=== PATIENT | male | born 1955 | race Asian ===

== ENCOUNTER 2016-11-20 22:19 | Inpatient (IN) | payer OTHER ==
[~2016-11-20] VITALS: Ht 165.1 cm; Wt 80.3 kg
[2016-11-20 23:15] VITALS: BP 137/79
[2016-11-20] MEDS ORDERED: DOCU-170 PO (23:58)
[2016-11-20] MEDS ORDERED: FAMO-131 PO (23:58)
[2016-11-20] MEDS ORDERED: ATOR80TA PO (23:58)
[2016-11-21] VITALS (7 sets, daily range): BP systolic 129–156; BP diastolic 77–99
[2016-11-21] MEDS ORDERED: NITR0.4T6 SL (00:03)
[2016-11-21] MEDS ORDERED: CLOP75TA2 PO (00:03)
[2016-11-21] MEDS ORDERED: METO25TA6 PO (00:06)
[2016-11-21] MEDS ORDERED: LOSA50TA21 PO (00:06)
[2016-11-21] MEDS ORDERED: CLOPIDOGREL BISULFATE 75 MG TABLET PO SCH (00:30)
[2016-11-21] MEDS ORDERED: LOSARTAN POTASSIUM 50 MG TABLET PO SCH ×2 (00:30→09:00)
[2016-11-21] MEDS ORDERED: Medication Not On Formulary EA (Atorvastatin Calcium (Lipitor) 80 MG) PO SCH (00:30)
[2016-11-21] MEDS ORDERED: MORPHINE SULFATE INJ 2 MG/ML DISP.SYRIN IV PRN (00:30)
[2016-11-21] MEDS ORDERED: NITROGLYCERIN 0.4 MG/TAB BOTTLE SL PRN (00:30)
[2016-11-21] MEDS ORDERED: FAMOTIDINE (20 MG) 20 MG TABLET PO SCH (00:30)
[2016-11-21] MEDS ORDERED: ACETAMINOPHEN 325 MG TABLET PO PRN (00:30)
[2016-11-21] MEDS ORDERED: DOCUSATE SODIUM 100 MG CAPSULE PO SCH (00:30)
[2016-11-21] MEDS ORDERED: NITROGLYCERIN 0.4 MG/TAB BOTTLE SL SCH (00:30)
[2016-11-21] MEDS ORDERED: METOPROLOL TARTRATE 25 MG TABLET PO SCH (00:30)
[2016-11-21 08:12] LABS: BASOPHILS % (AUTO) 0.3 % (0.0-2.0); EOSINOPHILS # (AUTO) 0.3 /CMM (0.0-0.7); EOSINOPHILS % (AUTO) 2.9 % (0.0-6.0); HEMATOCRIT 49 % (39-51); HEMOGLOBIN 16.7 g/dL (13.5-17.5); LYMPHOCYTES % (AUTO) 21.7 % (20.0-44.0); MEAN CORPUSCULAR HEMOGLOBIN 34 PG (26.0-33.0); MEAN CORPUSCULAR HGB CONC 34 g/dl (31.0-36.0); MEAN CORPUSCULAR VOLUME 98 fL (80-96); MONOCYTES # (AUTO) 0.6 /CMM (0.1-1.30); MONOCYTES % (AUTO) 6.5 % (2.0-12.0); NEUTROPHILS # (AUTO) 6.4 /CMM (1.8-8.9); NEUTROPHILS % (AUTO) 68.6 % (43.0-81.0); PLATELET COUNT (AUTO) 162 /CMM (150-450); RDW COEFFICIENT OF VARIATION 13.7 (11.5-15.0); RED BLOOD CELL COUNT(AUTO) 4.98 MIL/uL (4.5-6.0); WHITE BLOOD COUNT (AUTO) 9.4 K/uL (4.3-11.0)
--- NOTE | 2016-11-21 08:12 | NUR ---
RN NOTES RECV'D REPORT FROM DEBORA RN "JIMMY". PT ASSESSMENT. A&OX3. DENIES CP. NO S/S RESP DISTRESS. BED REST. VOIDS URINAL. 2LNC O2 100% SATS. NO SKIN BREAKDOWN. TELE MONITOR SB 50'S. POS TROP 0.10 @ 00:25 HRS. NEXT TROP TO BE DRAWN @08:00HRS. ECHOCARDIOGRAM HAS BEEN ORDERED. BED IN LOW LOCKED POSITION. SIDE RAILSX3. CALL LIGHT IN REACH. WILL CONT TO MONITOR.
[2016-11-21 08:24] LABS: CALCIUM, SERUM 7.5 mg/dL (8.5-10.1); CREATININE 0.8 mg/dL (0.6-1.3); MAGNESIUM 2.4 mg/dL (1.8-2.4); PHOSPHORUS 2.8 mg/dL (2.5-4.9); POTASSIUM 3.6 mmol/L (3.5-5.1)
[2016-11-21 08:26] LABS: TROPONIN I 0.069 ng/mL (0.00-0.056)
[2016-11-21] MEDS: METOPROLOL TARTRATE 25 MG TABLET PO SCH ×3 (09:00→16:23)
--- NOTE | 2016-11-21 09:02 | NUR ---
ADONAY RN NOTE MRSA SWAB TAKEN ORDERED, DR RICK NOTIFIED ABOUT PATIENT CONDITION , AWARE THAT EKG WAS DONE IN [place], WILL F/U
[2016-11-21] MEDS: ATORVASTATIN 40 MG TABLET PO SCH (09:16)
[2016-11-21] MEDS: CLOPIDOGREL BISULFATE 75 MG TABLET PO SCH (09:16)
[2016-11-21] MEDS: DOCUSATE SODIUM 100 MG CAPSULE PO SCH ×2 (09:17→16:22)
[2016-11-21] MEDS: FAMOTIDINE (20 MG) 20 MG TABLET PO SCH (09:19)
--- NOTE | 2016-11-21 09:53 | NUR ---
RN NOTES SPOKE W/ DR. SAHU RE ETHAN 50'S AND MD WANTS TO CONT METOPROLOL PO AT THIS TIME. BEDSIDE ECHOCARDIOGRAM AT BEDSIDE.
--- NOTE | 2016-11-21 12:00 | NUR ---
RN NOTES PT RESTING COMFORTABLY SITTING UP IN BED VISITING W/ ADULT SON. SON UPDATED RE CASE MANAGEMENT WORKING ON LOCATING AVAILABLE BED AT [facility]. SON VERBALIZES UNDERSTANDING OF INSTRUCTIONS. PT O2 SATS 98% 2LNC. DENIES CP, SOB. BED IN LOW LOCKED POSITION. SIDE RAILS UP X3. CALL LIGHT IN REACH. WILL CONT TO MONITOR.
--- NOTE | 2016-11-21 12:53 | NUR ---
DETECTIVE AUTOMOBILE SECTION NOTE SPOKE WITH JOHANA RN NO NOTIFIED THAT HR WAS 49-51 2 D ECHO DONE ,60% EF , ALSO NO C\O CHEST PAIN OR DISCOMFORT AT THIS TIME , ON LOPRESSOR 25 MG PO BID , STATED ITS OK AND LOPRESSOR HOLD IF HR LESS 50 SBP LESS 100
--- NOTE | 2016-11-21 16:38 | NUR ---
RN NOTES PT RESTING COMFORTABLY. SLEEPING. EASILY AWOKEN. CALL LIGHT IN REACH. DENIES CP, SOB. WILL CONT TO MONITOR.
--- NOTE | 2016-11-21 17:48 | NUR ---
telephone engineer note spoke with bilingual case manager about transfer for cardiac cath at [facility], possible tomorrow , patient and family aware, not in acute distress, farideh rn engineering drawings checker notifyed
--- NOTE | 2016-11-21 18:02 | NUR ---
RN NOTES PT SITTING UP IN BED ALERT AND RESPONDING APPROPRIATELY. 2LNC 96% O2 SATS. NO SOB. DENIES CP. HR 50'S W/ METOP 25MG BID. ATE 100% FOOD OFFERED. CASE MANAGEMENT WORKING ON PLACEMENT AT [facility] WHERE PT HAS HAD CARDIAC STENTING APPROX 1 YR AGO. BED IN LOW LOCKED POSITION. SIDE RAILS UP X3. CALL LIGHT IN REACH. WILL ENDORSE REPORT TO NOC RN. WILL CONT TO MONITOR UNTIL THAT TIME.
--- NOTE | 2016-11-21 20:00 | NUR ---
television writer notes received pts on bed awake alert and verbally responsive ,on tele SB-52 ON THE MONITOR , NO SOB NO DISTRESS NOTED ,NO COMPLAIN OF PAIN .V/S STABLE AFEBRILE. FAMILY AT BEDSIDE UPDATED WITH PATIENT CURRENT CONDITION , ALL NEEDS ATTENDED TOO CALL LIGHT WITHIN REACH , KEPT PTS CLEAN DRY AND COMFORTABLE . WILL CONTINUE TO MONITOR PTS.
[2016-11-22] VITALS: BP 154/91
--- NOTE | 2016-11-22 00:36 | NUR ---
teletype telegrapher notes pts in bed sleeping comfortably , no significant change noted.
--- NOTE | 2016-11-22 01:30 | NUR ---
THERMAL ENGINEER NOTES PTS NOTED WITH HR OF 45, CHECKED ON PTS , PTS IS ASLEEP EASILY AROUSE , NO COMPLAIN OF PAIN , NO SOB NO DISTRESS NOTED , V/S STABLE WILL CONTINUE TO MONITOR PTS.
[2016-11-22 04:00] VITALS: BP 131/94
[2016-11-22 06:43] LABS: TROPONIN I 0.034 ng/mL (0.00-0.056)
[2016-11-22 06:48] LABS: CREATININE 0.8 mg/dL (0.6-1.3); MAGNESIUM 2.4 mg/dL (1.8-2.4); POTASSIUM 3.8 mmol/L (3.5-5.1)
--- NOTE | 2016-11-22 06:54 | NUR ---
television receiver analyzer notes pts remain on tele sb -47 on the monitor , no significant change noted , will endorse to rn day shift for continuity of care.
[2016-11-22 08:00] VITALS: BP 168/96
--- NOTE | 2016-11-22 08:00 | NUR ---
TELE1/RN AM SHIFT INITIAL NOTES RECEIVED PT AWAKE IN BED. PT A/O X 3 DENIES PAIN, UZBEK SPEAKING BUT UNDERSTAND AND SPEAKS LITTLE ROMANIAN. NO ACUTE CHANGE OF CONDITION. ON TELE WITH SINUS ETHAN, HR 54, IV SITE PATENT WITH NO S/S OF INFECTION. PT IS COMFORTABLE AT THIS TIME. SCHEDULES AM MEDS TO BE GIVEN. CL WITHIN REACHED AND SAFETY MAINTAINED. ON GOING MONITORING. Addendum: 11/22/16 at 1147 by AMADOR TOVAR RN ADDENDUM: PT ON 2L O2 VIA N/C SATURATING @ 99%, LUNG SOUNDS CLEAR.
[2016-11-22] MEDS: FAMOTIDINE (20 MG) 20 MG TABLET PO SCH (08:31)
[2016-11-22] MEDS: CLOPIDOGREL BISULFATE 75 MG TABLET PO SCH (08:31)
[2016-11-22] MEDS: DOCUSATE SODIUM 100 MG CAPSULE PO SCH ×2 (08:31→15:55)
[2016-11-22] MEDS: METOPROLOL TARTRATE 25 MG TABLET PO SCH ×2 (08:32→15:54)
[2016-11-22] MEDS: ATORVASTATIN 40 MG TABLET PO SCH (08:33)
[2016-11-22] MEDS ORDERED: LOSARTAN POTASSIUM 50 MG TABLET PO SCH (09:00)
--- NOTE | 2016-11-22 12:00 | NUR ---
MS1/RN NOON ROUNDS NO CHANGE OF CONDITION. MONITORING.
[2016-11-22] MEDS ORDERED: IV NS 0.9% 250 ML IV ONE (14:16)
[2016-11-22] MEDS ORDERED: IOHEXOL-350 100 ML VIAL IV ONE (14:16)
--- NOTE | 2016-11-22 14:48 | NUR ---
MS1/INTELLIGENCE DIRECTOR OF CARE PT ENDORSED TO NURSE BENITEZ TO CONTINUE CARE.
--- NOTE | 2016-11-22 14:57 | NUR ---
RECEIVED REPORT FROM RN. WILL CONTINUE TO CARE FOR PATIENT
--- NOTE | 2016-11-22 14:58 | NUR ---
PATIENT GET BACK TO UNIT FROM CT SCAN
--- NOTE | 2016-11-22 16:20 | NUR ---
SPOKE TO DR SAHU REGRADING THE CT SCAN RESULT. PER DR SAHU, PATIENT CT RESULTS ARE NEGATIVE AND PATIENT IS CLEAR TO GO. JOHANA WAS NOTIFIED
[2016-11-22] MEDS ORDERED: CLONIDINE HCL 0.1 MG TABLET PO PRN (16:30)
[2016-11-22 16:51] VITALS: BP 171/92
--- NOTE | 2016-11-22 16:52 | NUR ---
BLOOD PRESSURE STILL HIGH 171/92. CLONAPINE 0.1 ADMINISTERED.
--- NOTE | 2016-11-22 18:49 | NUR ---
ASSISTANT CORPORATE SECRETARY NOTES PATIENT DISCHARGE ORDER RECEIVED AND CARRIED OUT. PATIENT AND PATIENT SON EDUCATED REGARDING NEW MEDICATIONS AND DISCHARGE PACKAGE. PATIENT RECEIVED NEW PRESCRIPTIONS. PATIENT ADVISED TO FOLLOW UP WITH HIS PRIMARY CARE PHYSICIAN WITHIN 3 DAYS OF DISCHARGE. DUE TO THE LATE DISCHARGE TIME, PRIMARY CARE PHYSICIAN'S OFFICE IS CLOSED AND UNABLE TO MAKE AN APPOINTMENT ON PATIENT BEHALF; PATIENT WILL SCHEDULE THE APPOINTMENT. PATIENT AND PATIENT'S SON, UMER BORJAS, VERBALIZED UNDERSTANDING. NO NEW CONCERNS AT THIS TIME. I ADVISED PATIENT NOT TO DRINK ALCOHOL, PER SON, PATIENT DRINKS 24OZ OF BEER DAILY. PATIENT IS LEAVING IN A STABLE CONDITION. SKIN IS INTACT. IV SITES REMOVED. ID BAND REMOVED. ALL PERSONAL BELONGING WITH PATIENT AT TIME OF DISCHARGE. ALL DISCHARGE FORMS SIGNED BY PATIENT AND PLACED IN THE CHART. PATIENT ESCORTED TO [facility] VIA A WHEELCHAIR AND A TECHNOLOGY AUDITOR. PATIENT TRANSPORTED HOME WITH A PRIVATE CAR AND HIS SON, UMER.
== END 2016-11-22 18:46 | disposition home or self-care (01) | DRG 190 ==
LOC: TELE-TD 23:05 → TELE1 11-21 09:04 → MEDSG1 11-22 12:39
PROVIDERS: ADMIT Internal Medicine; ATTEND Internal Medicine
DX: I21.4 Non-ST elevation (NSTEMI) myocardial infarction (principal); F10.94 Alcohol use, unspecified with alcohol-induced mood disorder; I10 Essential (primary) hypertension; I48.92 Unspecified atrial flutter; E78.5 Hyperlipidemia, unspecified; I25.10 Atherosclerotic heart disease of native coronary artery without angina pectoris; E87.6 Hypokalemia; E66.9 Obesity, unspecified; Z68.29 Body mass index [BMI] 29.0-29.9, adult; I48.0 Paroxysmal atrial fibrillation; Z98.61 Coronary angioplasty status; Z86.73 Personal history of transient ischemic attack (TIA), and cerebral infarction without residual deficits; I25.2 Old myocardial infarction
CPT/HCPCS: 36415; 75574; 80048-TC; 83735-TC; 84100-TC; 84484-TC; 85025-TC; 87081-TC; 93307-TC; J7050; Q9967; Z7610